=== PATIENT | female | born 1940 | race Caucasian/White ===

== ENCOUNTER 2016-11-28 09:44 | Day surgery (SDC) | payer MEDICARE, BC ==
--- NOTE | ~2016-11-28 | EGD ---
EGD REPORT [facility] [address] [address] NAME: ZARINA NICKERSON : [birth year] STATUS : REG [facility]#: [id number] AGE: 76 ADM/REG DATE : 11/28/16 MR#: [id number] REPORT SERV DATE: 11/28/16 DICTATED BY: PEREZ RUSS DATE: 11/28/16 REPORT STATUS : Draft [facility]: [facility] DATE: 11/28/16 Endoscopy Center Patient Name: Zarina Nickerson Date of : 1940 Attending MD: PEREZ RUSS MD Procedure Date No Time: 11/28/2016 Procedure: Upper GI endoscopy Indications: Heartburn, Suspected esophageal reflux, Chronic cough, Personal history of peptic ulcer disease, hx duodenal gist Referring MD: EPREZ DURAN Medicines: as per anesthesia Complications: No immediate complications. Procedure: Pre-Anesthesia Assessment: - ASA Grade Assessment: II - A patient with mild systemic disease. After obtaining informed consent, the endoscope was passed under direct vision. Throughout the procedure, the patient's blood pressure, pulse, and oxygen saturations were monitored continuously. The GIF [id number] [id number] was introduced through the mouth, and advanced to the third part of duodenum. The upper GI endoscopy was accomplished without difficulty. The patient tolerated the procedure. Findings: The examined esophagus was normal. A small hiatus hernia was present. Localized mild inflammation characterized by erythema was found in the gastric antrum. Biopsies were taken with a cold forceps for histology. The examined duodenum was normal. Impression: - Normal esophagus. - Hiatus hernia. - Gastritis. Biopsied. - Normal examined duodenum. Recommendation: - Await pathology results. - Follow an antireflux regimen. - Continue present medications. Procedure Code(s): --- Professional --- 71296, Esophagogastroduodenoscopy, flexible, transoral; with biopsy, single or multiple EGD REPORT [address] [place] [place]. [address] NAME: ZARINA NICKERSON : [birth year] STATUS : REG [facility] PAT#: [id number] AGE: 76 ADM/REG DATE : 11/28/16 MR#: [id number] REPORT SERV DATE: 11/28/16 DICTATED BY: PEREZ RUSS. DATE: 11/28/16 REPORT STATUS : Draft TRANSCRIBED BY: [employer] DATE: 11/28/16 Diagnosis Code(s): --- Professional --- K44.9, Diaphragmatic hernia without obstruction or gangrene K29.70, Gastritis, unspecified, without bleeding R12, Heartburn R05, Cough Z87.11, Personal history of peptic ulcer disease CPT copyright 2013 [employer]. All rights reserved. The codes documented in this report are preliminary and upon shade bander review may be revised to meet current compliance requirements. PEREZ RUSS MD 11/28/2016 11:47 AM This report has been signed electronically. Number of Addenda: 0 Note Initiated On: 11/28/2016 11:25 AM Scope Withdrawal Time 0 hours 0 minutes 0 seconds [address] [place] [address]
--- NOTE | ~2016-11-28 | EGD ---
EGD REPORT [facility] [address] [address] NAME: ZARINA NICKERSON : [birth year] STATUS : REG [facility]#: [id number] AGE: 76 ADM/REG DATE : 11/28/16 MR#: [id number] REPORT SERV DATE: 11/28/16 DICTATED BY: PEREZ RUSS DATE: 11/28/16 REPORT STATUS : Draft [facility]ANS[facility]: [facility] DATE: 11/28/16 Endoscopy Center Patient Name: Zarina Nickerson Date of : 1940 Attending MD: PEREZ RUSS MD Procedure Date No Time: 11/28/2016 Procedure: Colonoscopy Indications: High risk colon cancer surveillance: Personal history of colonic polyps, FH of Colonic Polyps - 1st degree relative Referring MD: PEREZ DURAN Medicines: as per anesthesia Complications: No immediate complications. Procedure: Pre-Anesthesia Assessment: - ASA Grade Assessment: II - A patient with mild systemic disease. After I obtained informed consent, the scope was passed under direct vision. Throughout the procedure, the patient's blood pressure, pulse, and oxygen saturations were monitored continuously. The PCF [id number] was introduced through the anus and advanced to the transverse colon. The colonoscopy was somewhat difficult due to restricted mobility of the colon, significant looping and a tortuous colon. The patient tolerated the procedure. The quality of the bowel preparation was adequate to identify polyps. Findings: The perianal and digital rectal examinations were normal. Many small and large-mouthed diverticula were found in the sigmoid colon and in the descending colon. Internal hemorrhoids were found during endoscopy and were mild. scope not passed beyond tv colon because of fixation Impression: - Diverticulosis in the sigmoid colon and in the descending colon. - Internal hemorrhoids. Recommendation: - Perform an air contrast barium enema at appointment to be scheduled. Procedure Code(s): --- Professional --- 21773, 52, Colonoscopy, flexible, proximal to splenic flexure; diagnostic, with or without collection of specimen(s) by brushing or washing, with or without EGD REPORT [facility] [address] [address] NAME: ZARINA NICKERSON : [birth year] STATUS : REG [facility] PAT#: [id number] AGE: 76 ADM/REG DATE : 11/28/16 MR#: [id number] REPORT SERV DATE: 11/28/16 DICTATED BY: PEREZ RUSS. DATE: 11/28/16 REPORT STATUS : Draft TRANSCRIBED BY: [employer] DATE: 11/28/16 colon decompression (separate procedure) Diagnosis Code(s): --- Professional --- K64.8, Other hemorrhoids K57.30, Diverticulosis of large intestine without perforation or abscess without bleeding Z86.010, Personal history of colonic polyps Z83.71, Family history of colonic polyps CPT copyright 2013 [employer]. All rights reserved. The codes documented in this report are preliminary and upon merchandise examiner review may be revised to meet current compliance requirements. PEREZ RUSS MD 11/28/2016 12:25 PM This report has been signed electronically. Number of Addenda: 0 Note Initiated On: 11/28/2016 11:44 AM Scope Withdrawal Time 0 hours 7 minutes 11 seconds [address] [id number]
[~2016-11-28 09:44] MED LIST: ASAB PO; CALGLUCTAB PO; COMP10B PO; COSAMIN DS1 TAB PO; FISH-EPA1000 MG PO; FLECAINIDE50 MG PO; FOSAMAX70 MG PO; GLUCCHONDR PO; NOLV10 PO; PCET PO; SYN.025B PO; TAMBO50 PO; VITAMIN D400 UNI1 PO; ZOCOR20 PO
== END 2016-11-28 23:59 | disposition home or self-care (01) ==
LOC: DMU 09:44
PROVIDERS: Internal Medicine Gastroenterology
PROC: 0DB68ZX Excision of Stomach, Via Natural or Artificial Opening Endoscopic, Diagnostic (ICD-10-PCS; principal; 2016-11-28 11:00)
PROC: 0DJD8ZZ Inspection of Lower Intestinal Tract, Via Natural or Artificial Opening Endoscopic (ICD-10-PCS; 2016-11-28 11:00)
DX: K64.8 Other hemorrhoids (principal); K57.30 Diverticulosis of large intestine without perforation or abscess without bleeding; K44.9 Diaphragmatic hernia without obstruction or gangrene; K21.9 Gastro-esophageal reflux disease without esophagitis; I48.91 Unspecified atrial fibrillation; M19.90 Unspecified osteoarthritis, unspecified site; Z85.3 Personal history of malignant neoplasm of breast; E03.9 Hypothyroidism, unspecified; Z98.1 Arthrodesis status; Z88.8 Allergy status to other drugs, medicaments and biological substances; Z79.899 Other long term (current) drug therapy; Z87.11 Personal history of peptic ulcer disease; Z86.010 Personal history of colon polyps; Z83.71 Family history of colonic polyps; Z90.49 Acquired absence of other specified parts of digestive tract; Z90.710 Acquired absence of both cervix and uterus; Z96.641 Presence of right artificial hip joint; Z98.890 Other specified postprocedural states
CPT/HCPCS: 88305